=== PATIENT | male | born 1995 | race Caucasian/White ===

== ENCOUNTER 2020-09-04 11:44 | Outpatient (CLI) | payer SELFPAY ==
[2020-09-04 13:43] LABS: SARS-CoV-2 Ag Negative (Negative)
== END 2020-09-04 11:45 | disposition home or self-care (01) ==
LOC: CHSLAB 11:52
PROVIDERS: Visit Provider Nurse Practitioner Psychiatric/Mental Health
DX: Z20.828 Contact with and (suspected) exposure to other viral communicable diseases (principal)
CPT/HCPCS: 87426